=== PATIENT | female | born 2000 | race Caucasian/White ===

== ENCOUNTER 2025-03-06 04:49 | Emergency (ER) | payer MEDICAID, OTHER ==
[2025-03-06] MEDS: Lidocaine 1% 5 ML VIAL INJECT ONE (05:30)
[2025-03-06] MEDS: Bacitracin Oint 1 GM U/D Packet TOP ONE (06:05)
[2025-03-06] MEDS: Acetaminophen 500 MG Tab PO ONE (06:36)
== END 2025-03-06 06:49 | disposition home or self-care (01) ==
LOC: LL.ED 04:49
DX: S62.630A Displaced fracture of distal phalanx of right index finger, initial encounter for closed fracture (principal); Z91.048 Other nonmedicinal substance allergy status; Z79.51 Long term (current) use of inhaled steroids; Z86.16 Personal history of COVID-19; W23.1XXA Caught, crushed, jammed, or pinched between stationary objects, initial encounter; Y93.89 Activity, other specified; Y99.0 Civilian activity done for income or pay
CPT/HCPCS: 12001; 73130-RT; 99283; A9270-GY; J2003

== ENCOUNTER 2025-06-20 02:13 | Emergency (ER) | payer OTHER ==
[2025-06-20] MEDS: Tetracaine HCl/PF 0.5% 4 ML Bottle EYEBOTH ONE (02:27)
[2025-06-20] MEDS: Take Home: Polymyxin B Sulf/Trimethoprim Ophth Soln 10 ML, 1 Bottle Pack EYEBOTH ONE (02:27)
== END 2025-06-20 03:00 | disposition home or self-care (01) ==
LOC: LL.ED 02:13
DX: S05.01XA Injury of conjunctiva and corneal abrasion without foreign body, right eye, initial encounter (principal); S05.02XA Injury of conjunctiva and corneal abrasion without foreign body, left eye, initial encounter; Z91.018 Allergy to other foods; Z79.51 Long term (current) use of inhaled steroids; Z79.899 Other long term (current) drug therapy; J45.909 Unspecified asthma, uncomplicated; Z86.16 Personal history of COVID-19; W44.8XXA Other foreign body entering into or through a natural orifice, initial encounter; Y93.89 Activity, other specified
CPT/HCPCS: 99283; A9270; J3490